=== PATIENT | female | born 1960 | race Caucasian/White ===

== ENCOUNTER → 2019-05-29 | Outpatient (CLI) | payer OTHER ==
--- NOTE | 2019-05-29 10:36 | MM ---
Reason for exam: screening (asymptomatic). Last mammogram was performed 4 years and 9 months ago. History: Patient is postmenopausal. Physical Findings: A clinical breast exam by your physician is recommended on an annual basis and results should be correlated with mammographic findings. MG Screening Mammo w CAD Bilateral CC and MLO view(s) were taken. Prior study comparison: August 16, 2014, bilateral MG screening mammo w CAD. September 14, 2011, bilateral digital screening mammo w/CAD. The breast tissue is heterogeneously dense. This may lower the sensitivity of mammography. Asymmetric breast tissue right upper breast, stable from 2011. There is no discrete abnormality. Benign bilateral axillary lymph nodes. ASSESSMENT: Benign, BI-RAD 2 RECOMMENDATION: Routine screening mammogram of both breasts in 1 year.
== END | disposition home or self-care (01) ==
LOC: RADMAMWWP 08:11
PROVIDERS: ATTEND Obstetrics & Gynecology
DX: Z12.31 Encounter for screening mammogram for malignant neoplasm of breast (principal)
CPT/HCPCS: 77067

== ENCOUNTER → 2023-06-23 | Outpatient (CLI) | payer OTHER ==
--- NOTE | 2023-06-25 16:05 | MM ---
Reason for Exam: Screening (asymptomatic). Last mammogram was performed 2 year(s) and 0 month(s) ago. Patient History: Menarche at age 10. First Full-Term at age 27. Postmenopausal. Patient has history of breast feeding. Risk Values: Bere 5 year model risk: 1.9%. NCI Lifetime model risk: 8.4%. Prior Study Comparison: 08/16/2014 Bilateral Screening Mammogram, [facility]. 05/29/2019 Bilateral Screening Mammogram, [facility]. 06/22/2021 Bilateral Screening Mammogram, [facility]. Tissue Density: There are scattered fibroglandular densities. Findings: Analyzed By CAD. The pattern is symmetrical and stable. No significant interval changes. Focal asymmetry which appears stable in the upper portion right mediolateral oblique view No suspicious groups of microcalcifications, spiculated or lobular masses, architectural distortion or other secondary signs of malignancy are mammographically apparent. Overall Assessment: Benign, BI-RAD 2 Management: Screening Mammogram of both breasts in 1 year. A negative mammogram report should not preclude additional follow up of suspicious palpable abnormalities. Patient should continue monthly self breast exam. A clinical breast exam by your physician is recommended on an annual basis and results should be correlated with mammographic findings. Electronically signed and approved by: Kane Levin D.O. Radiologis
== END | disposition home or self-care (01) ==
LOC: RADMAMWWP 10:12
PROVIDERS: ATTEND Family Medicine
DX: Z12.31 Encounter for screening mammogram for malignant neoplasm of breast (principal); Z78.0 Asymptomatic menopausal state
CPT/HCPCS: 77067